=== PATIENT | female | born 1985 | race Caucasian/White ===

== ENCOUNTER 2016-10-23 15:23 | Emergency (ER) | payer OTHER ==
[2016-10-23] MEDS ORDERED: DUONEB 0.5-3 MG/3 ml Neb IH ONE ×2 (15:24→15:39)
[2016-10-23] MEDS ORDERED: solu-MEDROL 125 MG IV ONE (15:24)
[2016-10-23] MEDS ORDERED: TYLENOL 325 MG PO ONE (15:24)
[2016-10-23] MEDS ORDERED: TYLENOL 325 MG ONE (15:36)
[2016-10-23] MEDS ORDERED: solu-MEDROL 125 MG ONE (15:36)
[2016-10-23] MEDS ORDERED: TYLENOL 325 MG PO STA (15:38)
--- NOTE | 2016-10-23 15:38 | ERPHSYRPT ---
- History of Present Illness Time Seen by Provider: 10/23/16 15:33 Source: patient Exam Limitations: no limitations Physician History: The patient is a 31-year-old female who complains of cough, fevers, sore throat , nasal congestion, and muscle aches for one and a half weeks. She did not receive her influenza vaccine this year. She smokes. Her past medical history is unremarkable. Timing/Duration: week(s) (08/14), gradual onset Cough Quality/Degree: moderate, dry cough Possible Cause: occasional episodes, smoke exposure Modifying Factors: Improves With: coughing Associated Symptoms: fever, cough, muscle aches, nasal congestion Allergies/Adverse Reactions: Penicillins Allergy (Verified 07/12/16 14:25) Hx Tetanus, Diphtheria Vaccination/Date Given: No Hx Influenza Vaccination/Date Given: No Hx Pneumococcal Vaccination/Date Given: No - Review of Systems Constitutional: Fever Eyes: No Symptoms Ears, Nose, & Throat: Nose Congestion, Throat Pain Respiratory: Cough Cardiac: No Chest Pain, No Edema, No Syncope Abdominal/Gastrointestinal: No Abdominal Pain, No Nausea, No Vomiting, No Diarrhea Genitourinary Symptoms: No Dysuria Musculoskeletal: Myalgias Skin: No Rash Neurological: No Dizziness, No Focal Weakness, No Sensory Changes Psychological: No Symptoms Endocrine: No Symptoms Hematologic/Lymphatic: No Symptoms Immunological/Allergic: No Symptoms All Other Systems: Reviewed and Negative - Past Medical History Pertinent Past Medical History: No - Past Surgical History Past Surgical History: No - Social History Smoking Status: Current every day smoker How long have you smoked: 16 Exposure to second hand smoke: Yes Drug Use: marijuana Patient Lives Alone: No - Nursing Vital Signs Nursing Vital Signs: Initial Vital Signs Temperature 100.7 F Temperature Source Oral Pulse Rate 99 Respiratory Rate 18 Blood Pressure [Right Arm] 125/72 Pain Intensity 6 - Physical Exam General Appearance: no apparent distress, alert Eye Exam: PERRL/EOMI, eyes nml inspection Ears, Nose, Throat Exam: normal ENT inspection, TMs normal, pharynx normal, moist mucous membranes Neck Exam: normal inspection, non-tender, supple, full range of motion Respiratory Exam: normal breath sounds, lungs clear, No respiratory distress Cardiovascular Exam: regular rate/rhythm, normal heart sounds Gastrointestinal/Abdomen Exam: soft, No tenderness Pelvic Exam: not done Rectal Exam: not done Back Exam: normal inspection, No CVA tenderness, No vertebral tenderness Extremity Exam: normal inspection, normal range of motion Neurologic Exam: alert, oriented x 3, cooperative, normal mood/affect, sensation nml, No motor deficits Skin Exam: normal color, warm, dry, No rash Lymphatic Exam: inguinal node tender (L), No adenopathy SpO2 Interpretation: normal - Radiology Exams Chest X-ray Interpretation: Teleradiologist Report (subtle RLL infitrate per Dr Reynoso.) Ordered Tests: Active Orders 24 hr Category Date Time Status IV Insertion STAT Care 10/23/16 15:24 Active Pulse Oximetry (ED) STAT Care 10/23/16 15:24 Active CHEST 2 VIEWS (PA AND LAT) Stat Exams 10/23/16 15:25 Completed BLOOD CULTURE Stat Lab 10/23/16 15:30 Received BMP Stat Lab 10/23/16 15:32 Completed CBC W DIFF Stat Lab 10/23/16 15:32 Completed Manual Differential NC Stat Lab 10/23/16 15:32 Completed Respiratory Nebulizer STAT RT 10/23/16 15:26 Completed Medication Summary Discontinued Medications Generic Name Dose Route Start Last Admin Trade Name Seq PRN Reason Stop Dose Admin Acetaminophen 650 mg 10/23/16 15:24 10/23/16 15:37 Tylenol 325 Mg PO 10/23/16 15:25 650 mg STAT ONE Administration Acetaminophen 650 mg 10/23/16 15:38 10/23/16 16:13 Tylenol 325 Mg PO 10/23/16 15:39 Not Given STAT STA Acetaminophen Confirm 10/23/16 15:36 Tylenol 325 Mg Administered 10/23/16 15:37 Dose 650 mg .ROUTE .STK-MED ONE Albuterol/Ipratropium 3 ml 10/23/16 15:24 10/23/16 15:43 Duoneb 0.5-3 Mg/3 Ml Neb IH 10/23/16 15:25 3 ml STAT ONE Administration Albuterol/Ipratropium Confirm 10/23/16 15:39 Duoneb 0.5-3 Mg/3 Ml Neb Administered 10/23/16 15:40 Dose 3 ml IH .STK-MED ONE Methylprednisolone Sodium Succinate 125 mg 10/23/16 15:24 10/23/16 15:38 Solu-Medrol 125 Mg IV 10/23/16 15:25 125 mg STAT ONE Administration Methylprednisolone Sodium Succinate Confirm 10/23/16 15:36 Solu-Medrol 125 Mg Administered 10/23/16 15:37 Dose 125 mg .ROUTE .STK-MED ONE Lab/Rad Data: Laboratory Result Diagrams 10/23/16 15:32 10/23/16 15:32 Laboratory Results 10/23/16 10/23/16 10/23/16 Range/Units 15:32 15:32 15:25 WBC 6.4 (4.0-10.5) K/mm3 RBC 3.85 L (4.1-5.4) M/mm3 Hgb 11.3 L (12.0-16.0) gm/dl Hct 34.3 L (35-47) % MCV 89.1 (78-100) fl MCH 29.3 (26-32) pg MCHC 32.9 (32-36) g/dl RDW 13.3 (11.5-14.0) % Plt Count 133 L (150-450) K/mm3 MPV 12.0 H (6-9.5) fl Sodium 144 (136-145) mEq/L Potassium 3.2 L (3.5-5.1) mEq/L Chloride 105 (98-107) mEq/L Carbon Dioxide 28.5 (21-32) mEq/L Anion Gap 13.4 (5-15) MEQ/L BUN 7 L (9-20) mg/dL Creatinine 0.84 (0.55-1.30) mg/dl Estimated GFR > 60 ML/MIN Glucose 144 H (70-110) MG/DL Calcium 8.3 L (8.5-10.1) mg/dL Influenza Type A Ag NEGATIVE (NEGATIVE) Influenza Type B Ag POSITIVE (NEGATIVE) RSV (PCR) NEGATIVE (Negative) - Progress Progress: improved Air Movement: good Blood Culture(s) Obtained: Yes Antibiotics given: Yes Counseled pt/family regarding: lab results, diagnosis, need for follow-up, rad results - Departure Time of Disposition: 16:40 Departure Disposition: Home Clinical Impression: Influenza B, Infiltrate noted on imaging study, Hypokalemia Condition: Stable Critical Care Time: No Additional Instructions: You have an influenza B infection and an infiltrate on the chest Xray. You were given rocephin 1 gram by IV and a prescription for a z-lorenza. Follow up in 2 days with your PMD. Prescriptions: Azithromycin [Azithromycin 250 mg Pack] 250 mg PO UD #6 tablet
[2016-10-23 15:47] LABS: Mean Cell Volume 89.1 fl (78-100); Mean Corpuscular Hemoglobin 29.3 pg (26-32); Platelet Count 133 K/mm3 (150-450); Red Blood Count 3.85 M/mm3 (4.1-5.4); Red Cell Distribution Width 13.3 % (11.5-14.0); White Blood Count 6.4 K/mm3 (4.0-10.5)
[2016-10-23 16:04] LABS: ANION GAP 13.4 MEQ/L (5-15); BLOOD UREA NITROGEN 7 mg/dL (9-20); CHLORIDE 105 mEq/L (98-107); Carbon Dioxide 28.5 mEq/L (21-32); Glucose 144 MG/DL (70-110); Potassium 3.2 mEq/L (3.5-5.1); SODIUM 144 mEq/L (136-145)
--- NOTE | 2016-10-23 16:26 | XRAY ---
Indication: Fever and cough. Comparison: None PA/lateral chest demonstrates subtle right lower lobe infiltrate without consolidation or large effusion. Remaining heart, lungs, and bony thorax normal.
[2016-10-23] MEDS ORDERED: ROCEPHIN 1 Gm-D5w 50 ml Bag** 50 ML IV ONE ×2 (16:41→16:49)
[2016-10-23] MEDS ORDERED: Klor Con 10 MEQ PO ONE ×2 (16:42→16:49)
[2016-10-23 16:54] LABS: Total Cells Counted 100
[2016-10-23 16:58] LABS: ANISOCYTOSIS 1+; Platelet Estimate DECREASED (NORMAL)
[2016-10-23 17:13] VITALS: BP 128/68; PULSE 92; O2SAT 97
== END 2016-10-23 17:13 | disposition home or self-care (01) ==
LOC: ED 15:23
DX: J11.1 Influenza due to unidentified influenza virus with other respiratory manifestations (principal); R91.8 Other nonspecific abnormal finding of lung field; E87.6 Hypokalemia; R05 Cough; R50.9 Fever, unspecified; R09.81 Nasal congestion; J02.9 Acute pharyngitis, unspecified; M79.1 Myalgia; F17.200 Nicotine dependence, unspecified, uncomplicated
CPT/HCPCS: 36000; 36415; 71020; 80048; 85025; 87040; 87631; 94640; 96374; 99284; J0696; J2930; A9270-GY

== ENCOUNTER 2018-10-13 15:33 | Emergency (ER) | payer OTHER, SELFPAY ==
[2018-10-13 15:52] VITALS: BP 165/110; PULSE 74; O2SAT 100
--- NOTE | 2018-10-13 16:15 | ERPHSYRPT ---
- History of Present Illness Source: patient Exam Limitations: no limitations Patient Subjective Stated Complaint: Pt c/o left lower tooth abscess x 3 days, denies fever. states could not get dentist apt until 1 week from now. Triage Nursing Assessment: pink/warm/dry, resp easy, steady gait, a&ox4, decay noted to multiple teeth with abscess noted. Physician History: Pt is a 33 y/o female with deep cavities in the back two teeth on the R lower side. Pt states, her pain is severe and her dentist can't see her for another week. Timing/Duration: gradual onset Severity: moderate Prearrival Treatment: no prearrival treatment Modifying Factors: Improves With: nothing Associated Symptoms: tooth pain (R lower jaw, two last teeth.) Allergies/Adverse Reactions: Penicillins Allergy (Verified 10/13/18 15:43) Hx Tetanus, Diphtheria Vaccination/Date Given: Yes Hx Influenza Vaccination/Date Given: No Hx Pneumococcal Vaccination/Date Given: No Immunizations Up to Date: Yes - Review of Systems Constitutional: No Fever, No Chills Ears, Nose, & Throat: Other (teeth ache on the R lower jaw) Respiratory: No Cough, No Dyspnea Cardiac: No Chest Pain, No Edema, No Syncope Abdominal/Gastrointestinal: No Abdominal Pain, No Nausea, No Vomiting, No Diarrhea Musculoskeletal: No Back Pain, No Neck Pain Neurological: No Dizziness, No Focal Weakness, No Sensory Changes - Past Medical History Pertinent Past Medical History: No - Past Surgical History Past Surgical History: No - Social History Smoking Status: Current every day smoker How long have you smoked: 16 Exposure to second hand smoke: No Drug Use: none Patient Lives Alone: No - Female History Hx Last Menstrual Period: "about a week ago" Hx Now: Yes - Nursing Vital Signs Nursing Vital Signs: Initial Vital Signs Temperature 97.5 F 10/13/18 15:44 Pulse Rate 74 10/13/18 15:44 Respiratory Rate 14 10/13/18 15:44 Blood Pressure 165/110 10/13/18 15:44 O2 Sat by Pulse Oximetry 100 10/13/18 15:44 Pain Scale Pain Intensity 10 - Physical Exam General Appearance: no apparent distress, alert Nasal Exam: normal inspection Throat Exam: pharynx normal, dental tenderness, moist mucus membranes Neck Exam: supple Neurologic Exam: alert, oriented x 3, sensation nml, No motor deficits SpO2: 100 - Course Nursing assessment & vital signs reviewed: Yes - Progress Progress: unchanged Progress Note: 10/13/18 16:13 Pt presented with teeth ache. I did explain to the pt that all I can do is give her ABX, but she have to see a dentist and take care of those teeth. Pt can use Ibuprofen or Aleve OTC for the pain. Will see patient in: other (Dentist) Counseled pt/family regarding: diagnosis - Departure Time of Disposition: 16:15 Departure Disposition: Home Clinical Impression: Tooth ache Condition: Stable Critical Care Time: No Referrals: DOCTOR,NO FAMILY [Primary Care Provider] - Additional Instructions: F/U with a dentist GRISELDA. Take Clindamycin as ordered. Use Ibuprofen or Aleve for pain. Prescriptions: Clindamycin HCl 300 mg PO QID 10 Days #40 capsule
[2018-10-13] MEDS ORDERED: CLEOCIN 150 MG CAPSULE PO ONE (16:18)
[2018-10-13] MEDS ORDERED: CLEOCIN 150 MG CAPSULE ONE (16:26)
== END 2018-10-13 16:31 | disposition home or self-care (01) ==
LOC: ED 15:33
DX: K08.89 Other specified disorders of teeth and supporting structures (principal)
CPT/HCPCS: 99283; A9270-GY